=== PATIENT | male | born 1995 | race Caucasian/White ===

== ENCOUNTER → 2024-11-05 10:00 | Outpatient (CLI) | payer OTHER, SELFPAY | LOC: RESP 10:03 | PROVIDERS: PCP Registered Nurse; Referring Provider Registered Nurse; Visit Provider Registered Nurse | DX: J45.20 Mild intermittent asthma, uncomplicated (principal); R94.2 Abnormal results of pulmonary function studies | CPT/HCPCS: 94060; 94726; 94729 ==